=== PATIENT | male | born 1985 | race Caucasian/White ===

== ENCOUNTER 2023-02-28 16:56 | Emergency (ER) | payer MEDICAID ==
[~2023-02-28] VITALS: Ht 180.3 cm; Wt 93.0 kg
[~2023-02-28 16:56] MED LIST: ZOLP5TAB2 PO
[2023-02-28 17:17] VITALS: BP_SYST 141
[2023-02-28 17:43] LABS: BASOPHILS # (AUTO) 0.1 K/uL (0.0-0.2); BASOPHILS % (AUTO) 0.7 % (0.0-2.0); EOSINOPHILS # (AUTO) 0.3 K/uL (0.0-0.4); EOSINOPHILS % (AUTO) 4.1 % (0.0-4.0); HEMATOCRIT 46.6 % (36-54); LYMPHOCYTES # (AUTO) 2.2 K/uL (1.0-5.5); LYMPHOCYTES % (AUTO) 27.4 % (20.5-51.5); MEAN CORPUSCULAR HEMOGLOBIN 28 pg (27-31); MEAN CORPUSCULAR HGB CONC 34 % (32-36); MEAN CORPUSCULAR VOLUME 82 fL (79.0-98.0); MONOCYTES # (AUTO) 0.7 K/uL (0.0-1.0); MONOCYTES % (AUTO) 8.8 % (1.7-9.3); NEUTROPHILS # (AUTO) 4.7 K/uL (1.8-7.7); PLATELET COUNT (AUTO) 241 K/uL (130-430); RED BLOOD CELL COUNT(AUTO) 5.66 MIL/uL (4.2-6.2); RED CELL DISTRIBUTION WIDTH 13.4 % (9.0-15.0)
[2023-02-28 17:54] LABS: ACETONE, SERUM NEGATIVE (NEGATIVE)
[2023-02-28 18:00] LABS: ANION GAP 10 (5-15); CALCIUM 8.6 mg/dL (8.4-11.0); CHLORIDE 100 mmol/L (98-107); CREATININE 1.04 mg/dL (0.55-1.30); GFR AFRICAN AMERICAN 103 mL/min (>90); GLUCOSE 356 mg/dL (70-99); UREA NITROGEN, BLOOD 15 mg/dL (8-21)
[2023-02-28 18:05] LABS: ALANINE AMINOTRANSFERASE 28 U/L (12-78); ALBUMIN 4.3 g/dL (3.4-4.8); ASPARTATE AMINOTRANSFERASE 14 U/L (10-37)
[2023-02-28] MEDS ORDERED: NACL 0.9% 1,000 ML IV ONE (19:15)
[2023-02-28] MEDS ORDERED: ASPI-1457 PO (20:25)
[2023-02-28] MEDS ORDERED: METO-290 PO (20:25)
[2023-02-28 21:11] VITALS: BP_SYST 129
== END 2023-02-28 19:11 | disposition home or self-care (01) ==
LOC: SED 16:56
DX: R07.2 Precordial pain (principal); E11.10 Type 2 diabetes mellitus with ketoacidosis without coma; K21.9 Gastro-esophageal reflux disease without esophagitis; I10 Essential (primary) hypertension; Z79.899 Other long term (current) drug therapy
CPT/HCPCS: 99285; 71045; 80053; 82009; 82962; 85025; 84484; 36415; 93005; J7030